=== PATIENT | female | born 1965 | race Caucasian/White ===

== ENCOUNTER 2023-01-17 19:45 | Inpatient (IN) | payer MEDICARE ==
[~2023-01-17] VITALS: Ht 170.2 cm; Wt 55.8 kg
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
--- NOTE | 2023-01-17 20:24 | NUR ---
Patient walked with steady gait, NAD noted. Patient's son is with her at bedside.
[2023-01-17] MEDS ORDERED: LORA0.5T48 PO (20:34)
[2023-01-17] MEDS ORDERED: TRAZ-182 PO (20:34)
[2023-01-17] MEDS ORDERED: ACET325T53 PO (20:34)
[2023-01-17] MEDS ORDERED: DOCU100C36 PO (20:34)
[2023-01-17] MEDS ORDERED: QUET200T PO (20:34)
[2023-01-17] MEDS ORDERED: CALC500T88 PO (20:34)
--- NOTE | 2023-01-17 20:36 | NUR ---
Dr Ortiz at bedside, MSE in progress.
--- NOTE | 2023-01-17 20:40 | NUR ---
Per Dr Ortiz, call post exchange manager inspection and testing supervisor for psych eval
--- NOTE | 2023-01-17 20:51 | NUR ---
called housing management representative Carolina Golden for psych eval. Per Carolina, patient has to be medically cleared by Dr Ortiz before psych evaluation
[2023-01-17] MEDS ORDERED: HALOPERIDOL LACTATE 5 MG/1 ML VIAL IM ONE (21:00)
[2023-01-17] MEDS ORDERED: diphenhydrAMINE 50 MG/1 ML VIAL ONE (21:00)
[2023-01-17] MEDS ORDERED: diphenhydrAMINE 50 MG/1 ML VIAL IM ONE (21:00)
[2023-01-17] MEDS ORDERED: LORAZEPAM 2 MG/1 ML VIAL IM ONE (21:00)
[2023-01-17] MEDS ORDERED: HALOPERIDOL LACTATE 5 MG/1 ML VIAL ONE (21:01)
[2023-01-17] MEDS ORDERED: LORAZEPAM 2 MG/1 ML VIAL ONE (21:01)
--- NOTE | 2023-01-17 21:50 | NUR ---
LAB AT [facility] DRAWING BLOOD. PT TAD, SON AT BEDSIDE.
[2023-01-17 21:57] LABS: HEMATOCRIT 38.3 % (31.2-41.9); MEAN CORPUSCULAR HEMOGLOBIN 28.2 uug (24.7-32.8); MEAN CORPUSCULAR VOLUME 83.6 fL (75.5-95.3); PLATELET COUNT (AUTO) 198 K/uL (179-408)
--- NOTE | 2023-01-17 22:11 | NUR ---
Called practice clinician David Zayas for psych eval.
[2023-01-17 22:16] LABS: *BILIRUBIN,URIN NEGATIVE (NEGATIVE); *CLARITY,URINE SLIGHTLY CLOUDY (CLEAR); *COLOR,URINE YELLOW (YELLOW); *KETONES,URINE NEGATIVE (NEGATIVE); *UROBILINOGEN,URINE 0.2 E.U./dl (NORMAL); LEUKOCYTE ESTERASE ,URINE 1+ (NEGATIVE); NITRITE, URINE NEGATIVE (NEGATIVE); PH,URINE 5.5 (5.0-8.0); UGLUCOSE NEGATIVE (NEGATIVE)
[2023-01-17 22:22] LABS: *BLOOD, URINE TRACE (NEGATIVE)
[2023-01-17 22:23] LABS: BACTERIA,URINE MODERATE /HPF (NONE SEEN); SQUAMOUS EPITHELIAL CELL,UR MODERATE /HPF (NONE SEEN)
[2023-01-17 22:24] LABS: ALANINE AMINOTRANSFERASE 16 U/L (14-59); ALKALINE PHOSPHATASE 131 U/L (50-136); ASPARTATE AMINOTRANSFERASE 5 U/L (15-37); BILIRUBIN,DIRECT 0.1 mg/dL (0.0-0.2); BILIRUBIN,TOTAL 0.2 mg/dL (0.2-1.0); CARBON DIOXIDE 30 mmol/L (21-32); CHLORIDE 107 mmol/L (98-107); CREATININE 0.7 mg/dL (0.6-1.3); ETHANOL < 3 MG/DL (0-0); GLUCOSE 109 mg/dL (74-106); POTASSIUM 3.8 mmol/L (3.5-5.1); TOTAL PROTEIN, SERUM 6.8 g/dL (6.4-8.2); UREA NITROGEN, BLOOD 21 mg/dL (7-18)
[2023-01-17 22:25] LABS: ACETAMINOPHEN < 2.0 ug/mL (10-30)
[2023-01-17 22:31] LABS: *AMPHETAMINE, URINE NEGATIVE (NEGATIVE); *CANNABINOID, URINE NEGATIVE (NEGATIVE); *COCCAINE, URINE NEGATIVE (NEGATIVE); *PHENCYCLIDINE SCREEN,URINE NEGATIVE (NEGATIVE)
--- NOTE | 2023-01-17 22:55 | NUR ---
Patient has been medically cleared by Dr Ortiz
--- NOTE | 2023-01-17 23:01 | NUR ---
Rudy [phone] - patient's son
--- NOTE | 2023-01-17 23:03 | NUR ---
Industrial Arts Teacher David Zayas at bedside psych eval in progress
[2023-01-17] MEDS ORDERED: CEFTRIAXONE /D5W 50ML IVPB **ER PYXIS IV ONE (23:13)
[2023-01-17] MEDS ORDERED: CEFTRIAXONE 1 G in IV DEXTROSE 5% 50 ML IV ONE (23:15)
[2023-01-17] MEDS ORDERED: IV NS 1000 ML 1,000 ML IV ONE (23:15)
--- NOTE | 2023-01-17 23:46 | NUR ---
called MHU for bed, patient assigned to room 139A
--- NOTE | 2023-01-18 00:12 | NUR ---
PT IS SLEEPING QUIETLY WITH NO C/O PAIN AND NAD OBSERVED.
--- NOTE | 2023-01-18 00:34 | NUR ---
Endorsed to Donna RN-MHU.
[2023-01-18] MEDS ORDERED: HALOPERIDOL LACTATE 5 MG/1 ML VIAL ONE (00:48)
[2023-01-18] MEDS ORDERED: HALOPERIDOL LACTATE 5 MG/1 ML VIAL IM ONE (01:00)
--- NOTE | 2023-01-18 01:20 | NUR ---
Pt. admitted to M[facility] 139A , under care of Dr. OSHEA Belongs List completed. PT STABLE, TAKEN TO MHU VIA IGNACIO. JANUARY RN ASSUMED PT CARE.
[2023-01-18] MEDS ORDERED: MAGNESIUM HYDROXIDE 30 ML LIQUID UDC PO PRN (01:30)
[2023-01-18] MEDS ORDERED: MAG HYDROX/AL HYDROX/SIMETH 30 ML LIQUID UDC PO PRN (01:30)
[2023-01-18 01:31] VITALS: BP 136/95
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
[2023-01-18 07:50] VITALS: BP 123/75
[2023-01-18] MEDS: QUETIAPINE FUMARATE 25 MG TABLET PO SCH ×2 (09:22→16:05)
[2023-01-18] MEDS ORDERED: CEphaleXIN 500 MG CAPSULE PO SCH (14:05)
[2023-01-18 16:04] VITALS: BP 141/93
[2023-01-18] MEDS: CEphaleXIN 500 MG CAPSULE PO SCH (16:18)
--- NOTE | 2023-01-18 16:54 | NUR ---
Pt is confused, disoriented,anxious and labile. Pt is responding to internal stimuli, nonsensical, Rambling "get out of my head, my head, my head", "Yeah shes was " correct," I was down there" Pt is not able to care for self and is uncooperative with nursing care and combative at times. Pt is unable to engage in a meaningful conversation.Reassurance provided. Safety measures put in place. Continue to monitor for safety, continue with treatment plan.
[2023-01-18 19:46] VITALS: BP 129/85
[2023-01-18] MEDS: TRAZODONE 50 MG TABLET PO SCH (20:13)
--- NOTE | 2023-01-19 05:15 | NUR ---
GPS NOTES: Received patient in arpit-chair, she is A&0x1, unable to make meaningful conversation, thought process is disorganized, responding to internal stimuli. Somewhat resistive to nursing care, somewhat re-directable. Med compliant. Fluids and snacks provided. She slept well this night. No apparent distress. Safety strategies are placed at all times.
[2023-01-19 07:52] LABS: BILIRUBIN,TOTAL 0.4 mg/dL (0.2-1.0); CREATININE 0.7 mg/dL (0.6-1.3); POTASSIUM 4.4 mmol/L (3.5-5.1); TOTAL PROTEIN, SERUM 7.1 g/dL (6.4-8.2)
[2023-01-19 08:11] VITALS: BP 124/83
[2023-01-19] MEDS: CEphaleXIN 500 MG CAPSULE PO SCH ×2 (08:52→20:19)
[2023-01-19] MEDS: QUETIAPINE FUMARATE 25 MG TABLET PO SCH ×2 (08:52→16:59)
--- NOTE | 2023-01-19 12:30 | NUR ---
Gps/Outside Contractor Sales- Speech Pathologist was in to evaluate patient regarding swallowing. Informed patient was observed , closely monitored during meals, curriculum writer did not observed any coughing while drinking her liquids, informed ST. meds. was administered crushed w/ apple sauce.
--- NOTE | 2023-01-19 14:58 | NUR ---
DELORES Initial Discharge Note: Pt currently resides at [facility] located in [address] [place] [address]. It is uncertain at this time if pt will return. DELORES spoke with pt's aunt, Lynne/YOHANNES ([phone]). DELORES will continue to work with ptLynne and to ensure a safe and proper discharge plan.
--- NOTE | 2023-01-19 15:01 | NUR ---
Firearms Report: Suspender Maker completed and submitted a [employer] firearms report for 5150 grave disability certifications. A copy of report has been placed in patient chart.
--- NOTE | 2023-01-19 15:34 | NUR ---
Gps/Home Insurance Agent- Incontinent of bowel, toileted ambulated to the bathroom, unsteady gait , taken to shower, resistive to care, 2 staff assisted patient during her shower.
[2023-01-19 16:02] VITALS: BP 106/76
[2023-01-19] MEDS: CLONAZEPAM 0.5 MG TABLET PO PRN (16:26)
[2023-01-19 17:48] LABS: THYROID STIMULATING HORMONE 2.405 mIU/mL (0.358-3.740)
[2023-01-19] MEDS: TRAZODONE 50 MG TABLET PO SCH (20:19)
[2023-01-19 20:28] VITALS: BP 136/92
[2023-01-20] MEDS: CLONAZEPAM 0.5 MG TABLET PO PRN ×3 (08:33→21:08)
[2023-01-20] MEDS: QUETIAPINE FUMARATE 25 MG TABLET PO SCH (08:33)
[2023-01-20] MEDS: CEphaleXIN 500 MG CAPSULE PO SCH ×2 (08:34→20:39)
[2023-01-20 08:37] VITALS: BP 117/71
[2023-01-20] MEDS: DIVALPROEX SPRINKLE 125 MG CAP.SPRINK PO SCH ×2 (12:07→20:38)
[2023-01-20] MEDS: OLANZAPINE ZYDIS 5 MG TAB.RAPDIS PO SCH ×2 (12:07→16:14)
--- NOTE | 2023-01-20 13:34 | NUR ---
Received patient is AAO x1 confused and disoriented ,talking to herself, responding to internal stimuli . imitable agitated unable care for self.PRN medication given for agitated , keep patient up to Altagracia-chair kepp patient close to nurse station for monitoring.
[2023-01-20 16:01] VITALS: BP 106/72
[2023-01-20 20:05] VITALS: BP 107/68
[2023-01-20] MEDS: TRAZODONE 50 MG TABLET PO SCH (20:38)
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
[2023-01-21 08:10] VITALS: BP 96/61
[2023-01-21] MEDS: CLONAZEPAM 0.5 MG TABLET PO PRN ×3 (08:53→19:39)
[2023-01-21] MEDS: DIVALPROEX SPRINKLE 125 MG CAP.SPRINK PO SCH ×2 (09:12→20:27)
[2023-01-21] MEDS: OLANZAPINE ZYDIS 5 MG TAB.RAPDIS PO SCH ×2 (09:12→16:02)
[2023-01-21] MEDS: CEphaleXIN 500 MG CAPSULE PO SCH ×2 (09:12→20:29)
[2023-01-21 17:16] VITALS: BP 109/78
[2023-01-21 20:00] VITALS: BP 106/50
[2023-01-21] MEDS: ACETAMINOPHEN 325 MG TABLET PO PRN (20:28)
[2023-01-21] MEDS: TRAZODONE 50 MG TABLET PO SCH (20:28)
--- NOTE | 2023-01-22 03:53 | NUR ---
Pt is still combative with care. Pt screams, kicks , punches, tries to bite and punch staff when providing care. Pt is nonsensical responding to internal stimuli. Pt can not perform her ADLs. It took 3 staff members to shower pt. Pt was Re-oriented to reality,Re-assured and redirected. PRN given for agitation. Pt was transfer to bed. safety precautions in place . continue to monitor for safety ,continue with treatment plan.
[2023-01-22] MEDS ORDERED: REMEDY ESSENTIAL ZINC PASTE 113 GM TOP SCH (06:00)
[2023-01-22 08:03] VITALS: BP 91/66
[2023-01-22] MEDS: CLONAZEPAM 0.5 MG TABLET PO PRN ×3 (08:28→20:37)
[2023-01-22] MEDS: DIVALPROEX SPRINKLE 125 MG CAP.SPRINK PO SCH ×2 (08:28→20:36)
[2023-01-22] MEDS: OLANZAPINE ZYDIS 5 MG TAB.RAPDIS PO SCH ×2 (08:28→16:45)
[2023-01-22] MEDS: CEphaleXIN 500 MG CAPSULE PO SCH ×2 (08:33→20:37)
--- NOTE | 2023-01-22 16:07 | NUR ---
Received patient is AAO x1 confused and disoriented ,talking to herself, responding to internal stimuli . imitable agitated unable care for self. PRN medication given for agitated , patient is irritable refused to eat throw away all lunch johanna on the floor keep patient up to Altagracia-chair kept patient close to nurse station for monitoring.
[2023-01-22 16:10] VITALS: BP 92/72
[2023-01-22 19:47] VITALS: BP 95/70
[2023-01-22] MEDS: TRAZODONE 50 MG TABLET PO SCH (20:36)
--- NOTE | 2023-01-23 02:54 | NUR ---
Patient back to bed after taking her meds with pudding; pt at times screams and could be resistant with care; Chiqui took her meds with pudding; hygiene care done and escorted her to bed with assist and slept; safety measures on going;
--- NOTE | 2023-01-23 07:00 | NUR ---
GPS Nursing notes: Patient in bed sleeping with no S/S of distress noted. Fall and safety precautions implemented.
[2023-01-23 07:49] VITALS: BP 98/53
[2023-01-23] MEDS ORDERED: OLANZAPINE ZYDIS 5 MG TAB.RAPDIS PO SCH ×2 (10:30→17:00)
[2023-01-23] MEDS: DIVALPROEX SPRINKLE 125 MG CAP.SPRINK PO SCH ×3 (10:36→21:00)
[2023-01-23] MEDS: CEphaleXIN 500 MG CAPSULE PO SCH (10:38)
[2023-01-23] MEDS ORDERED: REMEDY ESSENTIAL ZINC PASTE 113 GM TOP PRN (10:51)
[2023-01-23] MEDS: CLONAZEPAM 0.5 MG TABLET PO PRN (10:53)
--- NOTE | 2023-01-23 10:58 | NUR ---
GPS Nursing notes: Patient is up in Altagracia-Chair, screaming, banging on the table, PRN given for agitation as ordered. Emotional support provided, Fall and safety precautions implement.
[2023-01-23 11:17] LABS: HEMATOCRIT 43.3 % (31.2-41.9); MEAN CORPUSCULAR HEMOGLOBIN 27.8 uug (24.7-32.8); MEAN CORPUSCULAR VOLUME 83.7 fL (75.5-95.3); PLATELET COUNT (AUTO) 261 K/uL (179-408)
[2023-01-23 11:35] LABS: BILIRUBIN,TOTAL 0.4 mg/dL (0.2-1.0); CREATININE 0.8 mg/dL (0.6-1.3); POTASSIUM 4.4 mmol/L (3.5-5.1); TOTAL PROTEIN, SERUM 7.4 g/dL (6.4-8.2)
[2023-01-23] MEDS ORDERED: OLANZAPINE 10 MG VIAL IM STA (12:49)
--- NOTE | 2023-01-23 12:49 | NUR ---
GPS Nursing notes: patient sitting in Altagracia-chair, agitated, screaming bagging on chair table and grabbing, striking out at staff and peers when they walk by, PRN given by mouth earlier with no affect on agitated behavior. Call DNP, received order to administrate IM PRN for agitation. Fall and safety precautions implemented, Emotional support provided, Orders follow through. Will continue to monitor.
--- NOTE | 2023-01-23 15:51 | NUR ---
GPS Nursing notes: Patient still screaming, talking to herself, not banging on table, all needs provided, offered fluids, taken to bathroom. will continue to monitor.
[2023-01-23 16:31] VITALS: BP 100/75
[2023-01-23] MEDS: OLANZAPINE ZYDIS 5 MG TAB.RAPDIS PO SCH (17:23)
[2023-01-23 19:53] VITALS: BP 101/56
[2023-01-23] MEDS: TRAZODONE 50 MG TABLET PO SCH ×2 (20:55→21:00)
[2023-01-23] MEDS: REMEDY ESSENTIAL ZINC PASTE 113 GM TOP SCH ×2 (20:57→21:00)
--- NOTE | 2023-01-23 21:18 | NUR ---
Patient refused her 2100 hour scheduled medications r/t sedation from IM injection of Zyprexa during the AM shift. Will continue to monitor.
[2023-01-24] MEDS: CLONAZEPAM 0.5 MG TABLET PO PRN (06:25)
--- NOTE | 2023-01-24 06:32 | NUR ---
Pt started having prolonged screams that were intermittent for roughly 30 mins. This started after patient was cleaned and had her diaper changed around 1800 hours. Gave Klonopin 0.5 mg po, prn for increased and uncontrolled anxiety. Educated patient on its purpose. Pt is AOx1, and therefore cannot understand education attempt at this time. Reassured safety measures carried out. Will continue to monitor.
[2023-01-24 07:30] VITALS: BP 97/60
--- NOTE | 2023-01-24 07:30 | NUR ---
GPS Nursing Notes: Patient in bed, awake, disrobing, screaming, trashing bed. AM care provided at this time, no S/S of distress noted. Patient is total care.
--- NOTE | 2023-01-24 08:00 | NUR ---
GPS Nursing notes; Patient up in Altagracia-chair eating breakfast at this time, with no S/S of distress, patient needs help with meals intake. fall and safety precautions implemented, emotional support provided.
[2023-01-24] MEDS: REMEDY ESSENTIAL ZINC PASTE 113 GM TOP SCH ×2 (08:12→22:23)
[2023-01-24] MEDS: OLANZAPINE ZYDIS 5 MG TAB.RAPDIS PO SCH ×2 (08:12→16:13)
[2023-01-24] MEDS: DIVALPROEX SPRINKLE 125 MG CAP.SPRINK PO SCH ×2 (08:12→22:21)
[2023-01-24] MEDS ORDERED: LORAZEPAM 2 MG/1 ML VIAL IV ONE (10:00)
--- NOTE | 2023-01-24 10:04 | NUR ---
GPS Nursing notes: Patient is up sitting on Altagracia-chair, irritable, screaming, banging on table, does not follow directions, DR De Jesus her in nurses stating, receivded ordered for Ativan 1mg IM, given as ordered patient tolerated well will continue to monitor.
--- NOTE | 2023-01-24 12:44 | NUR ---
GPS Nursing notes: [facility] today for 5250, per court hearing patient 14 day hold for GD. Addendum: 01/24/23 at 1444 by TANVI GONZALEZ RN GPS Nursing notes: [facility] today for 5250, per court hearing patient 5250 upheld for GD.
--- NOTE | 2023-01-24 14:00 | NUR ---
GPS Nursing notes: Patient is sitting up Altagracia-chair, take to the bathroom, patient showered, decreased anxiety, screams at times. Will continue to monitor.
[2023-01-24 15:23] VITALS: BP 105/78
[2023-01-24] MEDS ORDERED: LORAZEPAM 2 MG/1 ML VIAL IM STA (17:56)
--- NOTE | 2023-01-24 18:07 | NUR ---
GPS: Nursing Notes: Chemical Restraint: Patient continue to be overly disruptive by constantly shouting over the top of her lungs, using profanities toward staff, threatening staff, banging on the table, hitting staff when getting closer to her, Eduardo De Jesus NP called back and ordered: Ativan 1mg IM STAT x1, R=18, IM medication given at this time, continue to monitor for safety, continue with treatment plan.
--- NOTE | 2023-01-24 18:25 | NUR ---
GPS: Nursing Notes: Severe Agitation: Patient is awake and overly disruptive by constantly shouting over the top of her lungs, setting limits, but unable to follow directions, restless behavior, hitting staff when coming closer to her, verbal abusive, threatening staff, banging on the table, Eduardo De Jesus, CREAM CHEESE MAKER called, continue to monitor for safety, continue with treatment plan. Addendum: 01/24/23 at 1838 by AUBREE CHAN LVN GPS: Nursing Notes: Severe Agitation: Above charting is for 17:56. Wrong timing.
--- NOTE | 2023-01-24 18:37 | NUR ---
GPS: Nursing Notes: Reassessment of Chemical Restraint: Patient is awake and responding to her name, continue to be disoriented, stopped shouting, IM medication was effective, R=18, continue to monitor for safety, continue with treatment plan.
[2023-01-24 20:00] VITALS: BP 119/70
--- NOTE | 2023-01-24 21:38 | NUR ---
PATIENT NOTED TO SLEEPING IN HER BLANKET SHEETS. NON-LABORED BREATHING NOTED. NO ACUTE DISTRESS. ENDORSED CONTINUATION OF CARE TO JAREK JONES.
[2023-01-24] MEDS: TRAZODONE 50 MG TABLET PO SCH (22:20)
[2023-01-25] MEDS: TEMAZEPAM 7.5 MG CAPSULE PO PRN ×2 (01:06→21:51)
--- NOTE | 2023-01-25 01:21 | NUR ---
Gave Restoril 7.5 mg po prn @ 0106 hours d/t continuous restlessness and intermittent screaming while laying in bed. Safety strategies implemented. Will continue to monitor.
[2023-01-25 07:30] VITALS: BP 104/64
[2023-01-25] MEDS: DIVALPROEX SPRINKLE 125 MG CAP.SPRINK PO SCH ×2 (09:26→21:50)
[2023-01-25] MEDS: OLANZAPINE ZYDIS 5 MG TAB.RAPDIS PO SCH ×2 (09:26→17:31)
[2023-01-25] MEDS: REMEDY ESSENTIAL ZINC PASTE 113 GM TOP SCH ×2 (09:29→21:53)
[2023-01-25] MEDS ORDERED: HALOPERIDOL 0.5 MG TABLET PO SCH (10:00)
[2023-01-25] MEDS: HALOPERIDOL 5 MG TABLET PO SCH ×2 (10:33→17:31)
[2023-01-25] MEDS: CLONAZEPAM 0.5 MG TABLET PO PRN (12:02)
[2023-01-25] MEDS ORDERED: diphenhydrAMINE 50 MG/1 ML VIAL IM ONE (13:15)
[2023-01-25] MEDS ORDERED: HALOPERIDOL LACTATE 5 MG/1 ML VIAL IM ONE (13:15)
[2023-01-25] MEDS ORDERED: LORAZEPAM 2 MG/1 ML VIAL IM ONE (13:15)
--- NOTE | 2023-01-25 15:04 | NUR ---
Patient was combative up on giving nursing care. Pt was striking out at staff while staff was performing ADLs. Pt was transferee to geriatric chair where se continued to be overly disruptive by constantly shouting over the top of her lungs, using profanities toward staff, threatening staff, banging on the table. Limits set, Re-oriented, Re-directed and Reassurance provided.Psychiatrist ordered Haldol 2.5, Ativan 1mg and Benadryl 25mg IM. Security was called and four people were necessary to administer medication. No force applied. Emotional support provided. No acute distress noted. Fall and Safety Precautions implemented. Continue to monitor for safety and behavioral escalation.
[2023-01-25 15:16] VITALS: BP 143/83
--- NOTE | 2023-01-25 18:22 | NUR ---
Pt received an IM for agitation, striking out at staff when providing care or getting close to he, disrobing and yelling. IM was not effective. Pt continue to yell, kept pounding on the tray table. Pt is uncooperative with care but compliant with medications unable to care for self . pt is nonsensical and unable to have a meaning full conversation.Re-directed , Re-oriented. Reassurance provided continue to monitor for safety, continue with treatment plan.
[2023-01-25 19:59] VITALS: BP 146/80
[2023-01-25] MEDS: TRAZODONE 50 MG TABLET PO SCH (21:50)
--- NOTE | 2023-01-25 21:54 | NUR ---
Due to continuous restlessness and confusion, along with intermittent screaming of various sounds (not words), and failed attempts at this staff trying to redirect her, this nurse gave Temazepam 7.5 mg po prn to help patient sleep. Safety strategies in place. Will continue to monitor.
[2023-01-26 07:30] VITALS: BP 110/72
[2023-01-26] MEDS: OLANZAPINE ZYDIS 5 MG TAB.RAPDIS PO SCH ×2 (08:51→17:18)
[2023-01-26] MEDS: HALOPERIDOL 5 MG TABLET PO SCH ×2 (08:51→17:18)
[2023-01-26] MEDS: DIVALPROEX SPRINKLE 125 MG CAP.SPRINK PO SCH ×2 (08:51→20:03)
[2023-01-26] MEDS: REMEDY ESSENTIAL ZINC PASTE 113 GM TOP SCH ×2 (08:52→20:53)
[2023-01-26] MEDS: CLONAZEPAM 0.5 MG TABLET PO PRN (11:18)
[2023-01-26 15:18] VITALS: BP 100/56
--- NOTE | 2023-01-26 16:28 | NUR ---
Pt still striking out at staff when providing care, yelling. Pt is uncooperative with care but compliant with medications, unable to care for self . pt is nonsensical and unable to have a meaning full conversation.Re-directed , Re-oriented. Reassurance provided continue to monitor for safety, continue with treatment plan.
[2023-01-26 19:56] VITALS: BP 139/90
[2023-01-26] MEDS: TRAZODONE 50 MG TABLET PO SCH (20:03)
[2023-01-26] MEDS: TEMAZEPAM 7.5 MG CAPSULE PO PRN (20:40)
--- NOTE | 2023-01-26 21:17 | NUR ---
GPS: Pt.is less anxious and restless tonight so far. Took bedtime meds.without any issues. Remains confused,disoriented and disorganized. No striking out behavior noted during care. Safe environment provided. Bed alarm on for safety.
[2023-01-27] MEDS: CLONAZEPAM 0.5 MG TABLET PO PRN (06:05)
[2023-01-27 08:00] VITALS: BP 117/77
[2023-01-27] MEDS: REMEDY ESSENTIAL ZINC PASTE 113 GM TOP SCH ×2 (08:42→20:32)
[2023-01-27] MEDS: HALOPERIDOL 5 MG TABLET PO SCH ×2 (08:42→17:44)
[2023-01-27] MEDS: OLANZAPINE ZYDIS 5 MG TAB.RAPDIS PO SCH ×2 (08:42→17:43)
[2023-01-27] MEDS: DIVALPROEX SPRINKLE 125 MG CAP.SPRINK PO SCH ×2 (08:42→20:24)
--- NOTE | 2023-01-27 12:12 | NUR ---
DELORES Discharge Update: DELORES contacted pt's auntLynne/YOHANNES ([phone]) and left a voicemail for a call back to discuss pt's discharge plan details. DELORES left her contact information for a call back.
[2023-01-27 16:00] VITALS: BP 102/77
--- NOTE | 2023-01-27 18:15 | NUR ---
pt is disoriented, speech in non-sensical, pt is not able to ask for needs, has episodes of yelling out without appearing reason. Pt needs assistance with ADLs. Pt requires multiple staff members to provide care.
[2023-01-27] MEDS: TRAZODONE 50 MG TABLET PO SCH (20:24)
[2023-01-27 20:59] VITALS: BP 107/75
[2023-01-27] MEDS: TEMAZEPAM 7.5 MG CAPSULE PO PRN (21:01)
--- NOTE | 2023-01-28 06:25 | NUR ---
Pt had less yelling outbursts But is still resistive with care and still hitting staff when providing care. Pt was transferred to bed, diaper was changed. reassurance provided. Fall and safety measures put in place. Pt slept for 8.45 hours. Continue to monitor for safety, Continue with treatment plan.
[2023-01-28 07:35] VITALS: BP 139/58
[2023-01-28] MEDS: DIVALPROEX SPRINKLE 125 MG CAP.SPRINK PO SCH ×2 (08:24→20:18)
[2023-01-28] MEDS: HALOPERIDOL 5 MG TABLET PO SCH ×2 (08:24→16:16)
[2023-01-28] MEDS: OLANZAPINE ZYDIS 5 MG TAB.RAPDIS PO SCH ×2 (08:24→16:17)
[2023-01-28] MEDS: REMEDY ESSENTIAL ZINC PASTE 113 GM TOP SCH ×2 (08:25→20:18)
[2023-01-28 16:10] VITALS: BP 105/86
[2023-01-28 20:00] VITALS: BP 130/80
[2023-01-28] MEDS: TRAZODONE 50 MG TABLET PO SCH (20:17)
[2023-01-28] MEDS: TEMAZEPAM 7.5 MG CAPSULE PO PRN (21:27)
[2023-01-29 07:44] VITALS: BP 108/66
[2023-01-29] MEDS: DIVALPROEX SPRINKLE 125 MG CAP.SPRINK PO SCH ×2 (08:28→20:49)
[2023-01-29] MEDS: HALOPERIDOL 5 MG TABLET PO SCH ×2 (08:28→16:55)
[2023-01-29] MEDS: OLANZAPINE ZYDIS 5 MG TAB.RAPDIS PO SCH ×2 (08:28→16:55)
[2023-01-29] MEDS: REMEDY ESSENTIAL ZINC PASTE 113 GM TOP SCH ×2 (08:30→21:29)
[2023-01-29] MEDS: CLONAZEPAM 0.5 MG TABLET PO PRN ×2 (12:24→16:55)
--- NOTE | 2023-01-29 14:10 | NUR ---
Received Pt is awake, disoriented, unable to respond to questions, yelling out . total care to all ADLS , Pt is at risk for falls. goals are not met.will continue close monitoring.
[2023-01-29 16:17] VITALS: BP 118/98
[2023-01-29 19:58] VITALS: BP 107/78
[2023-01-29] MEDS: TRAZODONE 50 MG TABLET PO SCH (20:49)
[2023-01-29] MEDS: TEMAZEPAM 7.5 MG CAPSULE PO PRN (22:02)
--- NOTE | 2023-01-30 05:52 | NUR ---
Pt is anxious, restless and combative. Pt did not had any yelling outbursts on this shift but is still uncooperative with care, hitting staff when providing care. Pt was transferred to bed, diaper was changed. reassurance provided. Fall and safety measures put in place. Pt slept for 6.0 hours. Continue to monitor for safety, Continue with treatment plan.
--- NOTE | 2023-01-30 07:30 | NUR ---
GPS Nursing notes: Patient in bed asleep at this time. No S/S of distress noted. Fall and safety precautions implemented. Will continue to monitor.
[2023-01-30 08:19] VITALS: BP 117/93
[2023-01-30] MEDS: REMEDY ESSENTIAL ZINC PASTE 113 GM TOP SCH ×2 (08:54→20:53)
[2023-01-30] MEDS: OLANZAPINE ZYDIS 5 MG TAB.RAPDIS PO SCH ×2 (09:50→16:43)
[2023-01-30] MEDS: DIVALPROEX SPRINKLE 125 MG CAP.SPRINK PO SCH ×2 (09:50→20:18)
[2023-01-30] MEDS: HALOPERIDOL 5 MG TABLET PO SCH ×2 (09:50→16:42)
--- NOTE | 2023-01-30 11:53 | NUR ---
GPS Nursing notes: Patient is up in Altagracia-Archana, patient, quiet and calm, no S/S of distress. Took medications as ordered, screams at times. Fall and safety precaution implemented, emotional support provided.
--- NOTE | 2023-01-30 11:59 | NUR ---
DELORES Discharge Update: Pt's aunt/DPOA, Lynne ([phone]) returned this SW's call to discuss pt's discharge plan. Lynne is agreeable for DELORES to refer pt to local facilities for psychiatrist, Dr. Sarmiento to follow care. DELORES will continue updating her. Lynne would like the pt to continue care at a SNF long-term.
--- NOTE | 2023-01-30 13:32 | NUR ---
GPS Nursing notes: Patient cooperative, medication compliant, CT done today. No S/S of distress noted, will continue to monitor.
[2023-01-30 16:20] VITALS: BP 107/88
--- NOTE | 2023-01-30 18:16 | NUR ---
GPS Nursing notes: Patient is up in Altagracia-chair in dayroom watching TV with peers, patient is calm and quiet. Fall and safety precaution implemented, emotional support provided through-out the day.
[2023-01-30 19:51] VITALS: BP 115/79
[2023-01-30] MEDS: TRAZODONE 50 MG TABLET PO SCH (20:18)
--- NOTE | 2023-01-31 06:25 | NUR ---
GPS: Pt.remains confused,disoriented and disorganized. Has poor insight to her present situation. Med.compliant. No episodes of being combative during care. Fall precautions observed. Slept 7.30 last night. Will continue to monitor.
[2023-01-31 08:08] VITALS: BP 114/47
[2023-01-31] MEDS: OLANZAPINE ZYDIS 5 MG TAB.RAPDIS PO SCH ×2 (09:37→17:12)
[2023-01-31] MEDS: HALOPERIDOL 5 MG TABLET PO SCH ×2 (09:37→17:12)
[2023-01-31] MEDS: REMEDY ESSENTIAL ZINC PASTE 113 GM TOP SCH ×2 (09:38→20:50)
[2023-01-31] MEDS: DIVALPROEX SPRINKLE 125 MG CAP.SPRINK PO SCH ×2 (09:38→20:04)
--- NOTE | 2023-01-31 15:32 | NUR ---
Received patient sleeping in her room. Patient is A/O X 1 to self. Patient is confused, disoriented, disorganized, forgetful, anxious and agitated at times, yelling outbursts, combative with nursing care, compliant with medications. Patient requires total care, ambulates with assistance of two physical therapists, incontinent, feeder. Reassurance given. Fall and safety precautions implemented.
[2023-01-31 16:16] VITALS: BP 116/70
[2023-01-31 20:00] VITALS: BP 119/81
[2023-01-31] MEDS: TRAZODONE 50 MG TABLET PO SCH (20:04)
--- NOTE | 2023-02-01 06:38 | NUR ---
GPS: Pt.is up on a arpit-chair as yonis. Less anxious and restless at this time. Showered earlier by staff and was mostly cooperative. No aggressive behavior noted. Fall precautions observed. Re-directed prn. Slept 8 hrs.total last night.
[2023-02-01 07:47] VITALS: BP 98/62
[2023-02-01] MEDS: DIVALPROEX SPRINKLE 125 MG CAP.SPRINK PO SCH ×2 (08:21→21:00)
[2023-02-01] MEDS: OLANZAPINE ZYDIS 5 MG TAB.RAPDIS PO SCH ×2 (08:21→17:00)
[2023-02-01] MEDS: HALOPERIDOL 5 MG TABLET PO SCH ×2 (08:21→17:00)
[2023-02-01] MEDS: REMEDY ESSENTIAL ZINC PASTE 113 GM TOP SCH ×2 (08:21→21:26)
--- NOTE | 2023-02-01 15:14 | NUR ---
Received patient sleeping in the hallway. Patient is cooperative with nursing care, compliant with medications, confused, forgetful, disoriented, disorganized. Patient is A/O X 1 to self. Reassurance given. Fall and safety precautions implemented.
[2023-02-01 15:20] VITALS: BP 128/89
[2023-02-01 19:57] VITALS: BP 112/68
[2023-02-01] MEDS: TRAZODONE 50 MG TABLET PO SCH (21:00)
[2023-02-02] MEDS: CLONAZEPAM 0.5 MG TABLET PO PRN ×2 (06:32→14:13)
[2023-02-02 07:30] VITALS: BP 108/72
[2023-02-02] MEDS: DIVALPROEX SPRINKLE 125 MG CAP.SPRINK PO SCH (09:00)
[2023-02-02] MEDS: REMEDY ESSENTIAL ZINC PASTE 113 GM TOP SCH (09:00)
[2023-02-02] MEDS: OLANZAPINE ZYDIS 5 MG TAB.RAPDIS PO SCH (09:00)
[2023-02-02] MEDS: HALOPERIDOL 5 MG TABLET PO SCH (09:00)
--- NOTE | 2023-02-02 13:41 | NUR ---
DELORES Discharge Note: Pt will be discharged to [facility] located at [address] [place] [id number] name address phone via Ambulance transportation at 3PM. DELORES spoke with Patricia barnett at the facility who states they are ready to accept the patient today. Pts aunt/DPOALynne ([phone]) is aware and agreeable with the discharge plan. Pt is aware and agreeable with discharge plan. Pt is alert and oriented x1, is unable to plan for self-care at this time. However, pt is willing to accept care at SNF. Pt denies any suicidal or homicidal ideation. Pt will follow-up at the facility with Psychiatrist, Dr. Sarmiento and Edi Analyst, Dr. Núñez. Pt presents with calm mood and congruent affect. PHARMACY: [facility] ([phone]) [address] [facility] [address].
--- NOTE | 2023-02-02 14:03 | NUR ---
DELORES FINAL DISCHARGE NOTE: Pt will be discharged to [facility] located at [address] [place], [place] [id number] via Ambulance transportation at 3PM. DELORES spoke with Patricia barnett at the facility who states they are ready to accept the patient today. Pts aunt/DPOALynne ([phone]) is aware and agreeable with the discharge plan. Pt is aware and agreeable with discharge plan. Pt is alert and oriented x1, is unable to plan for self-care at this time. However, pt is willing to accept care at SNF. Pt denies any suicidal or homicidal ideation. Pt will follow-up at the facility with Psychiatrist, Dr. Sarmiento and Director Electronics, Dr. Núñez. Pt presents with calm mood and congruent affect. PHARMACY: [facility] ([phone]) [address] [facility] [address].
[2023-02-02] MEDS: ACETAMINOPHEN 325 MG TABLET PO PRN (15:05)
[2023-02-02 15:27] VITALS: BP 100/53
--- NOTE | 2023-02-02 15:27 | NUR ---
Patient is anxious and agitated, Psychiatrist ordered Zyprexa 10 mg PO once, and Klonopin 0.5 mg PO once, will be monitored for effectiveness.
[2023-02-02] MEDS ORDERED: OLANZAPINE 5 MG TABLET PO ONE (15:30)
[2023-02-02] MEDS ORDERED: CLONAZEPAM 0.5 MG TABLET PO ONE (15:30)
--- NOTE | 2023-02-02 16:00 | NUR ---
Received orders to discharge this patient to [facility] located at [address] [place], [place] [id number] via Ambulance transportation at 3:30PM. Patient is agreeable with discharge plans, but refused to sign discharge documentation. Patient denies SI/HI AH/VH, SOB, pain or any discomfort. All belongings were returned to patient. Patient left the unit at 16:00. Reassurance given. Fall and safety precautions implemented.
== END 2023-02-02 16:00 | DRG 881 ==
LOC: ER 20:17 → GPS 23:30
PROVIDERS: ADMIT Psychiatry & Neurology Psychiatry; ATTEND Registered Nurse
DX: F32.9 Major depressive disorder, single episode, unspecified (principal); N39.0 Urinary tract infection, site not specified; F03.93 Unspecified dementia, unspecified severity, with mood disturbance; F03.911 Unspecified dementia, unspecified severity, with agitation; Z68.1 Body mass index [BMI] 19.9 or less, adult; R32 Unspecified urinary incontinence; Z91.410 Personal history of adult physical and sexual abuse; R13.10 Dysphagia, unspecified; M62.81 Muscle weakness (generalized); G93.9 Disorder of brain, unspecified; G47.00 Insomnia, unspecified; F25.9 Schizoaffective disorder, unspecified; B96.20 Unspecified Escherichia coli [E. coli] as the cause of diseases classified elsewhere; Z79.899 Other long term (current) drug therapy
CPT/HCPCS: 36415; 70450; 80164; 82747; 84443; 85014; 85025; 86592; 87806; A4663; C1758; G0480; J0696; J1200; J1630; J2060; J2358; J7040